=== PATIENT | female | born 1970 | race Asian ===

== ENCOUNTER → 2017-01-21 | Outpatient (CLI) | payer BC ==
[~2017-01-21] MED LIST: PRENTAB26
--- NOTE | 2017-01-21 10:29 | DIAGNOSTIC IMAGING REPORT ---
ULTRASOUND OF THE THYROID GLAND CLINICAL HISTORY: Thyroid nodule. COMPARISON STUDY: Thyroid ultrasound dated 08/07/2015. TECHNIQUE: Real-time, grayscale, and color flow sonography of the thyroid gland is performed utilizing a high-frequency linear transducer. Images are reviewed in the transverse and longitudinal planes. FINDINGS: Right lobe: The right lobe of the thyroid gland is normal in size and homogeneous in echotexture, measuring 5.7 x 2.0 x 2.2 cm. A hypoechoic complex nodule with internal flow is seen in the mid pole and measures 2.0 x 1.3 x 1.6 cm (previously measuring 1.7 x 1.3 x 1.3 cm). Left lobe: The left lobe of the thyroid gland is normal in size and homogeneous in echotexture, measuring 5.6 x 1.6 x 2.3 cm. A complex solid and cystic nodule in the midpole measures 1.8 x 1.4 x 1.7 cm (previously measured 1.8 x 1.3 x 1.6 cm). A honeycomb nodule in the lower pole measures 0.7 x 0.6 x 0.5 cm (likely unchanged but not previously measured). Isthmus: The thyroid isthmus is normal in appearance and measures 0.3 cm in AP diameter. A 4 mm hypoechoic nodule is noted in the right aspect of the isthmus. IMPRESSION: There are dominant bilateral thyroid nodules, similar in appearance to the 08/07/2015 examination. These have been previously aspirated. Correlation with pathology results is recommended. Electronically signed by: Seven Gee M.D. 01/21/2017 10:27 AM Dictated Date/Time: 01/21/2017 10:25 AM
== END | disposition home or self-care (01) ==
LOC: C.ULTR 09:47
PROVIDERS: ATTEND Family Medicine
DX: E04.2 Nontoxic multinodular goiter (principal)

== ENCOUNTER → 2017-03-18 | Outpatient (CLI) | payer BC ==
--- NOTE | 2017-03-18 16:44 | MAMMOGRAPHY REPORT ---
BILATERAL DIGITAL SCREENING MAMMOGRAM TOMOSYNTHESIS WITH CAD: 03/18/2017 CLINICAL HISTORY: Routine screening. Patient has no complaints. TECHNIQUE: Breast tomosynthesis in addition to standard 2D mammography was performed. Current study was also evaluated with a Computer Aided Detection (CAD) system. COMPARISON: Comparison is made to exams dated: 08/07/2015 mammogram, 08/01/2014 mammogram, 09/23/2011 mammogram, and 07/18/2010 mammogram - [facility]. BREAST COMPOSITION: The tissue of both breasts is heterogeneously dense, which may obscure small ma sses. FINDINGS: No suspicious masses, calcifications, or areas of architectural distortion are noted in e ither breast. There has been no significant interval change compared to prior exams. IMPRESSION: ACR BI-RADS CATEGORY 1: NEGATIVE There is no mammographic evidence of malignancy. A 1 year screening mammogram is recommended. The p atient will receive written notification of the results. Approximately 10% of breast cancers are not detected with mammography. A negative mammographic repor t should not delay biopsy if a clinically suggestive mass is present. Joyce Beard M.D. ah/:03/18/2017 15:45:58 Doctor'S Assistant: Chidi CUADRA(R)(M), [facility] letter sent: Normal 1/2 BI-RADS Code: ACR BI-RADS Category 1: Negative
== END | disposition home or self-care (01) ==
LOC: C.MAMM 13:16
PROVIDERS: ATTEND Family Medicine
DX: Z12.31 Encounter for screening mammogram for malignant neoplasm of breast (principal)